=== PATIENT | male | born 1995 | race Caucasian/White ===

== ENCOUNTER 2019-04-15 13:45 | Emergency (ER) | payer MEDICAID ==
[~2019-04-15] VITALS: Ht 170.2 cm; Wt 80.3 kg
[2019-04-15 15:11] VITALS: BP 131/98
--- NOTE | 2019-04-15 15:11 | NUR ---
[facility] AT BEDSIDE FOR EVALUATION
--- NOTE | 2019-04-15 15:11 | NUR ---
Social service consult requested by MD for voluntary psychiatric admission. Pt is a 23-year-old male who self-referred for psychiatric admission. SPECIALIZED LANGUAGE INSTRUCTOR met with the pt. in ED. Pt is alert and oriented x 4. Pt. was drawing in his notepad at time of assessment. Pt. is cooperative and pleasant. Pt. states he is homeless and has been since 6 years old. SPECIALIZED LANGUAGE INSTRUCTOR asked pt. to elaborate and pt. stated he was in the care of [facility]. Pt. states he has family but no family support. Pt denies suicidal ideations but states he has homicidal thoughts and is not specific. Pt. is requesting voluntary psychiatric admission. Pt receives Food stamps and GR. Pt denies alcohol use. Pt. uses methamphetamines but states the methamphetamines are synthetic these days. Pt smokes 3 to 4 cigarettes per day. Pt denies marijuana use. SPECIALIZED LANGUAGE INSTRUCTOR informed pt. she will refer him to [facility] for voluntary admission. Pt agreed. SPECIALIZED LANGUAGE INSTRUCTOR contacted Levar at [facility] . Levar informed SPECIALIZED LANGUAGE INSTRUCTOR, they will have a bed available for the pt. at the [place] location. SPECIALIZED LANGUAGE INSTRUCTOR updated SOHEILA Chow.
[2019-04-15 15:14] LABS: BASOPHILS # (AUTO) 0.1 /CMM (0.0-0.2); BASOPHILS % (AUTO) 0.9 % (0.0-2.0); EOSINOPHILS % (AUTO) 1.9 % (0.0-6.0); HEMATOCRIT 46 % (39-51); HEMOGLOBIN 15.2 g/dL (13.5-17.5); LYMPHOCYTES # (AUTO) 2.1 /CMM (0.8-4.8); LYMPHOCYTES % (AUTO) 34.7 % (20.0-44.0); MEAN CORPUSCULAR HGB CONC 33 g/dl (31.0-36.0); MEAN CORPUSCULAR VOLUME 92 fL (80-96); MONOCYTES # (AUTO) 0.7 /CMM (0.1-1.30); MONOCYTES % (AUTO) 11.8 % (2.0-12.0); NEUTROPHILS # (AUTO) 3.1 /CMM (1.8-8.9); NEUTROPHILS % (AUTO) 50.7 % (43.0-81.0); PLATELET COUNT (AUTO) 245 /CMM (150-450); RED BLOOD CELL COUNT(AUTO) 5.02 MIL/uL (4.5-6.0)
[2019-04-15 15:22] LABS: CALCIUM, SERUM 9.1 mg/dL (8.5-10.1); CARBON DIOXIDE 32 mmol/L (21-32); CHLORIDE 106 mmol/L (98-107); CREATININE 0.8 mg/dL (0.6-1.3); GLUCOSE 78 mg/dL (74-106); POTASSIUM 3.8 mmol/L (3.5-5.1); SODIUM SERUM 143 mmol/L (136-145); UREA NITROGEN, BLOOD 8 mg/dL (7-18)
[2019-04-15 15:28] LABS: ALANINE AMINOTRANSFERASE 23 U/L (12-78); ALCOHOL, BLOOD < 3 mg/dL (0-0); ALKALINE PHOSPHATASE 89 U/L (46-116); ASPARTATE AMINOTRANSFERASE 23 U/L (15-37); BILIRUBIN,DIRECT 0.1 mg/dL (0.0-0.2); BILIRUBIN,TOTAL 0.5 mg/dL (0.2-1.0); TOTAL PROTEIN, SERUM 7.2 g/dL (6.4-8.2)
[2019-04-15 15:29] LABS: ACETAMINOPHEN < 2 ug/ml (10-30); SALICYLATE < 2.8 mg/dL (2.8-20.0)
--- NOTE | 2019-04-15 15:57 | NUR ---
Patient eloped from facility. ER PROVIDER notified.
== END 2019-04-15 16:01 | disposition left against medical advice (07) ==
LOC: ER 13:54
DX: R44.0 Auditory hallucinations (principal); F17.200 Nicotine dependence, unspecified, uncomplicated
CPT/HCPCS: 36415; 80048; 80076; 80307; 80329; 85025; 99283; G0480